=== PATIENT | female | born 1990 | race American Indian/Alaskan Native ===

== ENCOUNTER 2017-03-25 12:44 | Emergency (ER) | payer MEDICAID ==
[2017-03-25 15:21] LABS: Basophils % (Auto) 0.7 % (0.0-1.8); Eosinophils # (Auto) 0.3 K/mm3 (0.0-0.4); Hematocrit 35.7 % (30.3-42.9); Hemoglobin 11.7 gm/dl (10.1-14.3); Lymphocytes # (Auto) 1.7 K/mm3 (1.2-5.4); Lymphocytes % (Auto) 23.9 % (13.4-35.0); Mean Corpuscular HGB Conc 33 % (30-34); Mean Corpuscular Hemoglobin 28 pg (28-32); Mean Corpuscular Volume 85 fl (79-97); Monocytes # (Auto) 0.5 K/mm3 (0.0-0.8); Monocytes % (Auto) 7.8 % (0.0-7.3); Platelet Count 246 K/mm3 (140-440); Red Blood Count 4.23 M/mm3 (3.65-5.03); Red Cell Distribution Width 12.5 % (13.2-15.2)
[2017-03-25 15:46] LABS: Alanine Aminotransferase 20 units/L (7-56); Calcium 8.9 mg/dL (8.4-10.2); Hemolysis Index 4
[2017-03-25 16:25] LABS: BUN/Creatinine Ratio 13; Blood Urea Nitrogen 8 mg/dL (7-17)
--- NOTE | 2017-03-25 17:50 | Emergency Department Report ---
ED Abdominal Pain HPI - General Chief Complaint: Abdominal Pain Stated Complaint: LOWER ABDOMINAL PAIN Time Seen by Provider: 03/25/17 17:31 Source: patient Mode of arrival: Ambulatory Limitations: No Limitations - History of Present Illness MD Complaint: abdominal pain -: Sudden, days(s) (3 days) Location: RLQ Radiation: none Migration to: no migration Severity: severe Severity scale (0 -10): 7 Quality: cramping, stabbing Consistency: constant Improves With: rest Worsens With: movement Associated Symptoms: denies other symptoms Treatments Prior to Arrival: NSAIDs - Related Data LMP Date: 03/22/17 LMP (females 10-50): this week Previous Rx's Medication Instructions Recorded Last Taken Type Diphenhydramine HCl [Anti-Itch 30 gm TP TID #1 cream..g. 08/23/15 Unknown Rx CREAM] Ciprofloxacin HCl [Cipro] 500 mg PO Q12HR 10 Days #20 tablet 03/25/17 Unknown Rx Allergies Allergy/AdvReac Type Severity Reaction Status Date / Time fish derived Allergy Unknown Verified 08/22/15 21:44 fish Allergy Unknown Uncoded 08/22/15 21:44 peaches/kiwi Allergy Rash Uncoded 08/22/15 21:44 ED Review of Systems ROS: Stated complaint: LOWER ABDOMINAL PAIN Other details as noted in HPI Comment: All other systems reviewed and negative Constitutional: denies: chills, fever Eyes: denies: eye pain, eye discharge, vision change ENT: denies: ear pain, throat pain Respiratory: denies: cough, shortness of breath, wheezing Cardiovascular: denies: chest pain, palpitations Endocrine: no symptoms reported Gastrointestinal: abdominal pain. denies: nausea, diarrhea Genitourinary: denies: urgency, dysuria, discharge Musculoskeletal: denies: back pain, joint swelling, arthralgia Skin: denies: rash, lesions Neurological: denies: headache, weakness, paresthesias Psychiatric: denies: anxiety, depression Hematological/Lymphatic: denies: easy bleeding, easy bruising ED Past Medical Hx - Past Medical History Previous Medical History?: Yes Hx Asthma: Yes - Surgical History Past Surgical History?: No - Family History Family history: no significant, hypertension - Social History Smoking Status: Never Smoker Substance Use Type: None - Medications Home Medications: Home Medications Medication Instructions Recorded Confirmed Last Taken Type Diphenhydramine HCl [Anti-Itch 30 gm TP TID #1 cream..g. 08/23/15 Unknown Rx CREAM] Ciprofloxacin HCl [Cipro] 500 mg PO Q12HR 10 Days #20 tablet 03/25/17 Unknown Rx ED Physical Exam - General Limitations: No Limitations General appearance: alert, in no apparent distress - Head Head exam: Present: atraumatic, normocephalic - Eye Eye exam: Present: normal appearance - ENT ENT exam: Present: mucous membranes moist - Neck Neck exam: Present: normal inspection - Respiratory Respiratory exam: Present: normal lung sounds bilaterally. Absent: respiratory distress - Cardiovascular Cardiovascular Exam: Present: regular rate, normal rhythm. Absent: systolic murmur, diastolic murmur, rubs, gallop - GI/Abdominal GI/Abdominal exam: Present: soft, tenderness (right lower quadrant tenderness to palpation), normal bowel sounds - Extremities Exam Extremities exam: Present: normal inspection - Back Exam Back exam: Present: normal inspection - Neurological Exam Neurological exam: Present: alert, oriented X3 - Psychiatric Psychiatric exam: Present: normal affect, normal mood - Skin Skin exam: Present: warm, dry, intact, normal color. Absent: rash ED Course Vital Signs 03/25/17 03/25/17 14:42 19:19 Temperature 97.8 F 97.5 F L Pulse Rate 102 H 92 H Respiratory 18 18 Rate Blood Pressure 103/69 Blood Pressure 105/71 [Left] O2 Sat by Pulse 100 99 Oximetry ED Medical Decision Making - Lab Data Result diagrams: 03/25/17 14:52 03/25/17 14:52 - Radiology Data Radiology results: report reviewed No acute findings on CT scan of abdomen except for possible labial lesion secondary to Bartholin's cyst and simple renal cyst. - Medical Decision Making She is a 26-year-old female that presented with right lower quadrant pain. DT abdomen normal and negative. Urine positive for UTI. All labs and diagnostics reviewed with patient. Patient stable for discharge. Given discharge instructions. Patient instructed to take prescription medications - Differential Diagnosis uti/api. abd pain, gastroenteritis Critical care attestation.: If time is entered above; I have spent that time in minutes in the direct care of this critically ill patient, excluding procedure time. ED Disposition Clinical Impression: Abdominal pain, UTI (urinary tract infection) Disposition: TO HOME OR SELFCARE Is pt being admited?: No Does the pt Need Aspirin: No Condition: Stable Instructions: Abdominal Pain (ED), Urinary Tract Infection in Women (ED) Additional Instructions: Patient to follow up with primary care in 3-5 days. Patient to see GAS GENERATOR OPERATOR for management of Bartholin's cyst. Patient to take Tylenol or ibuprofen when necessary. Patient increase water. Patient to return to ER if condition worsens. Patient to take meds as instructed Prescriptions: Ciprofloxacin HCl [Cipro] 500 mg PO Q12HR 10 Days #20 tablet Referrals: PRIMARY CARE, [Primary Care Provider] - 3-5 Days Time of Disposition: 19:28
[2017-03-25 18:01] LABS: Bilirubin,Urine NEG (Negative); Blood,Urine MOD (Negative); Color,Urine Yellow (Yellow); Mucus,Urine 1+ /HPF; Nitrite,Urine NEG (Negative); Protein,Urine <15 mg/dL mg/dL (Negative); Urobilinogen,Urine < 2.0 mg/dL (<2.0)
--- NOTE | 2017-03-25 18:58 | Cat Scan Report ---
FINAL REPORT EXAM: CT ABDOMEN PELVIS WO CON HISTORY: abd pain TECHNIQUE: CT of the abdomen and pelvis was performed without intravenous contrast. Reconstructions were included in the coronal and sagittal planes. PRIORS: None. FINDINGS: Lower thorax: The lung bases are clear. The visualized portions of the heart are normal. Liver: The liver is normal in attenuation. No intrahepatic biliary duct dilation. No focal hepatic lesions. Gallbladder/ biliary system: Gallbladder is collapsed and not well evaluated. The common bile duct appears nondilated. Spleen: No splenic lesions are seen. Pancreas: No pancreatic lesions are seen. No pancreatic duct dilation. Kidneys: Small probable simple left inferior pole renal cyst is seen. No hydronephrosis. No renal or ureteral calcifications. Adrenal glands: No adrenal masses. Vasculature: The abdominal aorta is nondilated. Lymph nodes: No enlarged lymph nodes are seen in the abdomen or pelvis. Bowel, mesentery, peritoneum: No bowel obstruction. No free fluid or free air. The appendix is normal. No colonic diverticulosis. No bowel wall thickening. Urinary bladder: No filling defects are seen. Pelvis: A cystic focus is seen in the region of the right labia measuring 2.3 x 1.4 centimeters. The uterus and ovaries appear grossly unremarkable. Trace free fluid is seen in the pelvis which is likely physiologic. Abdominal wall: No abdominal wall hernia or other subcutaneous findings. Bones: No acute or chronic osseous finding. IMPRESSION: 1. Right labial lesion likely represents a Bartholin cyst. 2. Probable simple left renal cyst.
[2017-03-25 19:22] VITALS: BP 105/71
== END 2017-03-25 19:50 | disposition home or self-care (01) ==
LOC: ED 12:44
DX: N39.0 Urinary tract infection, site not specified (principal); Z91.013 Allergy to seafood; Z91.018 Allergy to other foods
CPT/HCPCS: 36415; 74176; 80053; 81001; 84703; 85025; 99284

== ENCOUNTER 2017-10-16 12:47 | Emergency (ER) | payer MEDICAID ==
[2017-10-16 12:55] VITALS: BP 116/72
[2017-10-16] MEDS ORDERED: XYLOCAINE 1% 20 mL INFILTRATI ONE (15:38)
--- NOTE | 2017-10-16 17:36 | Emergency Department Report ---
ED General Adult HPI - General Chief complaint: Skin/Abscess/Foreign Body Stated complaint: CYSPT/PAIN Time Seen by Provider: 10/16/17 14:56 Source: patient Mode of arrival: Ambulatory Limitations: No Limitations - History of Present Illness Initial comments: Patient presents to the emergency department with a complaint of a Bartholin's cyst. Patient states she's had this once before and had it drained in the emergency department. Patient denies any other symptoms. -: Gradual Location: genitals Radiation: non-radiation Severity scale (0 -10): 5 Improves with: none Worsens with: none Associated Symptoms: denies other symptoms Treatments Prior to Arrival: none - Related Data Previous Rx's Medication Instructions Recorded Last Taken Type Diphenhydramine HCl [Anti-Itch 30 gm TP TID #1 cream..g. 08/23/15 Unknown Rx CREAM] Ciprofloxacin HCl [Cipro] 500 mg PO Q12HR 10 Days #20 tablet 03/25/17 Unknown Rx Allergies Allergy/AdvReac Type Severity Reaction Status Date / Time fish derived Allergy Unknown Verified 08/22/15 21:44 fish Allergy Unknown Uncoded 08/22/15 21:44 peaches/kiwi Allergy Rash Uncoded 08/22/15 21:44 ED Review of Systems ROS: Stated complaint: CYSPT/PAIN Other details as noted in HPI Comment: All other systems reviewed and negative Constitutional: denies: chills, fever Eyes: denies: eye pain, eye discharge, vision change ENT: denies: ear pain, throat pain Respiratory: denies: cough, shortness of breath, wheezing Cardiovascular: denies: chest pain, palpitations Endocrine: no symptoms reported Gastrointestinal: denies: abdominal pain, nausea, diarrhea Genitourinary: denies: urgency, dysuria, discharge Musculoskeletal: denies: back pain, joint swelling, arthralgia Skin: denies: rash, lesions Neurological: denies: headache, weakness, paresthesias Psychiatric: denies: anxiety, depression Hematological/Lymphatic: denies: easy bleeding, easy bruising ED Past Medical Hx - Past Medical History Hx Asthma: Yes - Surgical History Past Surgical History?: No - Social History Smoking Status: Never Smoker Substance Use Type: None - Medications Home Medications: Home Medications Medication Instructions Recorded Confirmed Last Taken Type Diphenhydramine HCl [Anti-Itch 30 gm TP TID #1 cream..g. 08/23/15 Unknown Rx CREAM] Ciprofloxacin HCl [Cipro] 500 mg PO Q12HR 10 Days #20 tablet 03/25/17 Unknown Rx ED Physical Exam - General Limitations: No Limitations ED Course Vital Signs 10/16/17 12:53 Temperature 98.2 F Pulse Rate 96 H Respiratory 18 Rate Blood Pressure 116/72 O2 Sat by Pulse 99 Oximetry ED Medical Decision Making - Medical Decision Making Upon trying to find a female neurological surgeon to examine the patient end of the procedure the patient eloped Critical care attestation.: If time is entered above; I have spent that time in minutes in the direct care of this critically ill patient, excluding procedure time. ED Disposition Clinical Impression: Urogenital disorder Disposition: D Is pt being admited?: No Condition: Stable Referrals: PRIMARY CARE, [Primary Care Provider] - 3-5 Days
== END 2017-10-16 15:00 | disposition left against medical advice (07) ==
LOC: ED 12:47
DX: R52 Pain, unspecified (principal); Z53.21 Procedure and treatment not carried out due to patient leaving prior to being seen by health care provider

== ENCOUNTER 2020-06-08 08:30 | Emergency (ER) | payer MEDICAID ==
[2020-06-08 08:40] VITALS: BP 113/75
[2020-06-08 09:10] LABS: HCG Qualitative,Urine Negative (Negative)
[2020-06-08 09:17] LABS: Bilirubin,Urine NEG (Negative); Blood,Urine LG (Negative); Color,Urine Yellow (Yellow); Mucus,Urine 3+ /HPF; Urobilinogen,Urine < 2.0 mg/dL (<2.0); WBC,Urine > 182.0 /HPF (0.0-6.0)
--- NOTE | 2020-06-08 10:45 | Emergency Department Report ---
ED Female HPI - General Chief complaint: Urogenital-Female Stated complaint: PELVIC PAIN Time Seen by Provider: 06/08/20 09:47 Source: patient Mode of arrival: Ambulatory Limitations: No Limitations - History of Present Illness Initial comments: 29-year-old -[place] female presents to the emergency room full dull to sharp lower abdominal pain for the last 3 days. Patient denies any dysuria. She does admit to unprotected intercourse but denies any vaginal discharge. She is 6 para 3. Patient states nothing makes it worse is constant and better with sleep. Patient reports her last menstrual period was 05/20/2020. MD Complaint: pelvic pain Onset/Timin -: days(s) Location: suprapubic Severity scale (0 -10): 5 Quality: sharp, dull Consistency: constant Improves with: none Worsens with: none Are you Now?: No Last Menstrual Period: 05/20/20 EDC: 02/24/21 Associated Symptoms: hematuria. denies: vaginal discharge, vaginal bleeding, nausea/vomiting, dysuria, shortness of breath - Related Data Sexually active: Yes : 6 Para: 3 Previous Rx's Medication Instructions Recorded Last Taken Type Diphenhydramine HCl [Anti-Itch 30 gm TP TID #1 cream..g. 08/23/15 Unknown Rx CREAM] Ciprofloxacin HCl [Cipro] 500 mg PO Q12HR 10 Days #20 tablet 03/25/17 Unknown Rx Ibuprofen [Motrin 600 MG tab] 600 mg PO Q8H PRN #21 tablet 06/08/20 Unknown Rx Nitrofurantoin Brooke/M-Cryst 100 mg PO Q12HR 10 Days #20 capsule 06/08/20 Unknown Rx [Macrobid CAP] Allergies Allergy/AdvReac Type Severity Reaction Status Date / Time fish derived Allergy Unknown Verified 06/08/20 08:35 fish Allergy Unknown Uncoded 08/22/15 21:44 peaches/kiwi Allergy Rash Uncoded 08/22/15 21:44 ED Review of Systems ROS: Stated complaint: PELVIC PAIN Other details as noted in HPI Comment: All other systems reviewed and negative ED Past Medical Hx - Past Medical History Hx Asthma: Yes - Surgical History Past Surgical History?: No - Social History Smoking Status: Never Smoker Substance Use Type: None - Medications Home Medications: Home Medications Medication Instructions Recorded Confirmed Last Taken Type Diphenhydramine HCl [Anti-Itch 30 gm TP TID #1 cream..g. 08/23/15 Unknown Rx CREAM] Ciprofloxacin HCl [Cipro] 500 mg PO Q12HR 10 Days #20 tablet 03/25/17 Unknown Rx Ibuprofen [Motrin 600 MG tab] 600 mg PO Q8H PRN #21 tablet 06/08/20 Unknown Rx Nitrofurantoin Brooke/M-Cryst 100 mg PO Q12HR 10 Days #20 capsule 06/08/20 Unknown Rx [Macrobid CAP] ED Physical Exam - General Limitations: No Limitations General appearance: alert, in no apparent distress - Head Head exam: Present: atraumatic, normocephalic - Eye Eye exam: Present: normal appearance - ENT ENT exam: Present: normal external ear exam - Neck Neck exam: Present: normal inspection, full ROM - Respiratory Respiratory exam: Present: normal lung sounds bilaterally. Absent: respiratory distress - Cardiovascular Cardiovascular Exam: Present: regular rate - GI/Abdominal GI/Abdominal exam: Present: soft, normal bowel sounds. Absent: distended, tenderness - Extremities Exam Extremities exam: Present: normal inspection - Back Exam Back exam: Present: normal inspection - Neurological Exam Neurological exam: Present: alert, oriented X3, normal gait - Psychiatric Psychiatric exam: Present: normal affect, normal mood - Skin Skin exam: Present: warm, dry, intact, normal color. Absent: rash ED Course Vital Signs 06/08/20 08:39 Temperature 98.4 F Pulse Rate 95 H Respiratory 18 Rate Blood Pressure 113/75 O2 Sat by Pulse 98 Oximetry ED Medical Decision Making - Medical Decision Making 29-year-old -[place] female presents to the emergency room full dull to sharp lower abdominal pain for the last 3 days. Patient denies any dysuria. She does admit to unprotected intercourse but denies any vaginal discharge. She is 6 para 3. Patient states nothing makes it worse is constant and better with sleep. Patient reports her last menstrual period was 05/20/2020. Urinalysis shows positive for urinary tract infection. Will place patient on Macrobid 100 mg p.o. twice daily for 10 days. Instructed patient she can take ibuprofen or Tylenol for pain management. Instructed patient she needs to increase her water intake by 2 to 3 L daily. She needs to void after intercourse. Critical care attestation.: If time is entered above; I have spent that time in minutes in the direct care of this critically ill patient, excluding procedure time. ED Disposition Clinical Impression: UTI (urinary tract infection) Disposition: DC-01 TO HOME OR SELFCARE Is pt being admited?: No Does the pt Need Aspirin: No Condition: Stable Instructions: Urinary Tract Infection, Adult, [id number] Additional Instructions: Urinalysis is positive for urinary tract infection. I recommend to complete antibiotics as prescribed. Ibuprofen as needed for pain management. Increase your water intake by 2 to 3 L daily. Follow-up with your primary care provider in the next 3 to 5 days. Prescriptions: Nitrofurantoin Brooke/M-Cryst [Macrobid CAP] 100 mg PO Q12HR 10 Days #20 capsule Ibuprofen [Motrin 600 MG tab] 600 mg PO Q8H PRN #21 tablet PRN Reason: Pain Forms: Work/School Release Form(ED)
== END 2020-06-08 11:14 | disposition home or self-care (01) ==
LOC: ED 08:30
DX: N39.0 Urinary tract infection, site not specified (principal); J45.909 Unspecified asthma, uncomplicated; Z79.1 Long term (current) use of non-steroidal anti-inflammatories (NSAID); Z79.2 Long term (current) use of antibiotics; Z79.899 Other long term (current) drug therapy; Z88.8 Allergy status to other drugs, medicaments and biological substances; Z91.013 Allergy to seafood
CPT/HCPCS: 81001; 81025

== ENCOUNTER 2020-07-08 07:56 | Emergency (ER) | payer MEDICAID ==
--- NOTE | 2020-07-08 09:51 | Emergency Department Report ---
ED General Adult HPI - General Chief complaint: Vaginal Bleeding Stated complaint: PASSING CLOTS /NOT PREG Time Seen by Provider: 07/08/20 09:43 Source: patient Mode of arrival: Ambulatory Limitations: No Limitations - History of Present Illness Initial comments: 29-year-old A3 female patient presents to the emergency department with complaints of lower abdominal pain and vaginal bleeding starting this morning. Patient states that she has passed multiple blood clots today. She has soaked through approximately 4 pads/tampons in the last few hours. Last menstrual period was May 20. She is sexually active. She is not anticoagulated. Denies fever, chills, nausea, vomiting, diarrhea, rectal bleeding, vaginal discharge, syncope, chest pain, shortness of breath. Denies all other complaints at this time. - Related Data Previous Rx's Medication Instructions Recorded Last Taken Type Diphenhydramine HCl [Anti-Itch 30 gm TP TID #1 cream..g. 08/23/15 Unknown Rx CREAM] Ciprofloxacin HCl [Cipro] 500 mg PO Q12HR 10 Days #20 tablet 03/25/17 Unknown Rx Ibuprofen [Motrin 600 MG tab] 600 mg PO Q8H PRN #21 tablet 06/08/20 Unknown Rx Nitrofurantoin Elmore/M-Cryst 100 mg PO Q12HR 10 Days #20 capsule 06/08/20 Unknown Rx [Macrobid CAP] cephALEXin [Keflex] 500 mg PO Q8HR 5 Days cap 07/08/20 Unknown Rx Allergies Allergy/AdvReac Type Severity Reaction Status Date / Time fish derived Allergy Unknown Verified 06/08/20 08:35 fish Allergy Unknown Uncoded 08/22/15 21:44 peaches/kiwi Allergy Rash Uncoded 08/22/15 21:44 ED Review of Systems ROS: Stated complaint: PASSING CLOTS /NOT PREG Other details as noted in HPI Other: GENERAL: Negative for fever, chills, weight change, anorexia, fatigue. ENT: Negative for ear pain, difficulty hearing, sore throat, nasal congestion, epistaxis. CARDIOVASCULAR: Negative for chest pain, palpitations, lower extremity swelling. PULMONARY: Negative for cough, dyspnea, wheezing, orthopnea, cyanosis. GASTROINTESTINAL: Positive for abdominal pain. GENITOURINARY: Positive for vaginal bleeding. MUSCULOSKELETAL: Negative for joint pain, joint swelling, myalgias, back pain, neck pain. NEUROLOGICAL: Negative for headache, seizure, syncope, paresthesias, weakness. INTEGUMENTARY: Negative for erythema, rash, diaphoresis, laceration, ecchymosis. HEMATOLOGICAL: Negative for hemoptysis, hematemesis, hematochezia, hematuria. PSYCHIATRIC: Negative for hallucinations, suicidal ideation, homicidal ideation, anxiety, depression. ED Past Medical Hx - Past Medical History Previous Medical History?: Yes Hx Asthma: Yes - Social History Smoking Status: Never Smoker Substance Use Type: None - Medications Home Medications: Home Medications Medication Instructions Recorded Confirmed Last Taken Type Diphenhydramine HCl [Anti-Itch 30 gm TP TID #1 cream..g. 08/23/15 Unknown Rx CREAM] Ciprofloxacin HCl [Cipro] 500 mg PO Q12HR 10 Days #20 tablet 03/25/17 Unknown Rx Ibuprofen [Motrin 600 MG tab] 600 mg PO Q8H PRN #21 tablet 06/08/20 Unknown Rx Nitrofurantoin Elmore/M-Cryst 100 mg PO Q12HR 10 Days #20 capsule 06/08/20 Unknown Rx [Macrobid CAP] cephALEXin [Keflex] 500 mg PO Q8HR 5 Days cap 07/08/20 Unknown Rx ED Physical Exam - General Limitations: No Limitations - Other Other exam information: General: Awake and alert. No acute distress. Head: Atraumatic, normocephalic. Eyes: EOMI. Pupils are equal and round. Normal sclera and conjunctiva. ENT: Oral mucosa is moist. Normal pharyngeal exam. Neck: Supple. No lymphadenopathy. Pulmonary: No respiratory distress. Clear to auscultation bilaterally. Cardiac: Regular rate and rhythm. Pulses are palpable and equal bilaterally. No lower extremity cyanosis or edema. Skin: Warm and dry. No rashes. Abdomen: Soft, non-protuberant. Suprapubic tenderness without guarding, rigidity, or rebound. Bowel sounds are normal. No organomegaly or masses noted. Pelvic: Female heading repairer (Mariah) present. Normal external inspection. Cervical os is closed. There is no cervical motion tenderness. There is minimal blood in the vaginal vault. No discharge. No adnexal tenderness or masses. No uterine tenderness. Back: Normal alignment. No CVA tenderness. Extremities: Symmetrical. Full range of motion intact. Neurological: Alert and oriented, appropriately interactive, no focal deficits. Psych: Cooperative. Appropriate mood and affect. Speech is evenly metered. Thoughts are logically construed. ED Course Vital Signs 07/08/20 07/08/20 07:58 11:58 Temperature 98.5 F Pulse Rate 70 65 Respiratory 18 16 Rate Blood Pressure 114/69 110/78 [Right] O2 Sat by Pulse 100 100 Oximetry ED Medical Decision Making - Lab Data Result diagrams: 07/08/20 09:59 07/08/20 09:59 - Medical Decision Making Differential diagnosis including but not limited to: related complication, urinary tract infection, pyelonephritis, nephrolithiasis, ovarian cyst/torsion, pelvic inflammatory disease, tubo-ovarian abscess, coagulopathy, anemia, uterine fibroids, endometriosis Patient presents emergency department with complaints of suprapubic pain and vaginal bleeding. Vital signs are stable. Abdominal exam without signs of peritonitis. Hemoglobin is stable. test is negative. No concern for STD exposure. Upon further interrogation, patient states that she has been experiencing some discomfort with urination. She was recently treated for UTI with Macrobid a few weeks ago. No clinical indication for further diagnostic work-up on an emergent basis at this time. Patient will be discharged home with prescription for Keflex and instructed to follow-up with gynecology for further evaluation on an outpatient basis. Patient expressed understanding and is agreeable to plan of care. Strict return precautions provided. Repeat exam is unremarkable and benign. History, exam, diagnostic testing, and current condition do not suggest worrisome pathology to warrant further testing, continued ED treatment, admission, or surgical evaluation at this point. Given the low probability of a significant medical illness, it would be more likely to result in harm than benefit to perform further testing at this stage. Discussed findings, presumptive diagnosis, need for follow-up and specific signs/symptoms that should prompt immediate return to the emergency department. Instructions were explained in detail to the patient in addition to giving written discharge information. Patient expressed understanding and was given the opportunity to ask questions, all of which were satisfactorily answered prior to discharge home. Critical care attestation.: If time is entered above; I have spent that time in minutes in the direct care of this critically ill patient, excluding procedure time. ED Disposition Clinical Impression: Dysfunctional uterine bleeding Urinary tract infection Qualifiers: Urinary tract infection type: site unspecified Hematuria presence: with hematuria Qualified Code(s): N39.0 - Urinary tract infection, site not specified Disposition: DC- TO HOME OR SELFCARE Is pt being admited?: No Does the pt Need Aspirin: No Condition: Stable Instructions: Dysfunctional Uterine Bleeding Additional Instructions: Take Keflex with food as directed. Increase your dietary intake of probiotic rich foods while taking this medication. Rest. Drink plenty fluids. Follow-up with your heel gouger as scheduled. Return to the emergency department immediately for new or worsening symptoms. Specifically, return to the emergency department immediately for abdominal pain, increased bleeding, chest pain, shortness of breath, dizziness, loss of consciousness, or any other concerns. Prescriptions: cephALEXin [Keflex] 500 mg PO Q8HR 5 Days cap Referrals: LENCHO LUGO JR, MD [Staff Physician] - 3-5 Days Time of Disposition: 11:51
[2020-07-08 10:28] LABS: Basophils % (Auto) 0.6 % (0.0-1.8); Eosinophils # (Auto) 0.1 K/mm3 (0.0-0.4); Eosinophils % (Auto) 1.1 % (0.0-4.3); Hematocrit 37.7 % (30.3-42.9); Hemoglobin 12.3 gm/dl (10.1-14.3); Lymphocytes # (Auto) 2.2 K/mm3 (1.2-5.4); Lymphocytes % (Auto) 38.1 % (13.4-35.0); Mean Corpuscular HGB Conc 33 % (30-34); Mean Corpuscular Volume 86 fl (79-97); Monocytes # (Auto) 0.3 K/mm3 (0.0-0.8); Platelet Count 279 K/mm3 (140-440); Red Cell Distribution Width 13.3 % (13.2-15.2)
[2020-07-08 10:45] LABS: INR 0.89 (0.87-1.13)
[2020-07-08 10:46] LABS: Partial Thromboplastin Time 29.2 Sec. (24.2-36.6)
[2020-07-08 10:53] LABS: Alanine Aminotransferase 24 units/L (7-56); Albumin 3.9 g/dL (3.9-5); Blood Urea Nitrogen 6 mg/dL (7-17); Calcium 8.5 mg/dL (8.4-10.2); Hemolysis Index 48
[2020-07-08 11:02] LABS: BUN/Creatinine Ratio 9
[2020-07-08 11:38] LABS: Bilirubin,Urine NEG (Negative); Blood,Urine LG (Negative); Color,Urine Yellow (Yellow); Mucus,Urine 3+ /HPF; Urobilinogen,Urine < 2.0 mg/dL (<2.0)
[2020-07-08 11:39] LABS: RBC,Urine > 182.0 /HPF (0.0-6.0)
[2020-07-08 12:03] VITALS: BP 110/78
== END 2020-07-08 12:03 | disposition home or self-care (01) ==
LOC: ED 07:56
DX: N39.0 Urinary tract infection, site not specified (principal); N93.8 Other specified abnormal uterine and vaginal bleeding; J45.909 Unspecified asthma, uncomplicated; Z79.1 Long term (current) use of non-steroidal anti-inflammatories (NSAID); Z79.2 Long term (current) use of antibiotics; Z79.899 Other long term (current) drug therapy; Z91.013 Allergy to seafood; Z91.018 Allergy to other foods
CPT/HCPCS: 36415; 80053; 81001; 84702; 85025; 85610; 85730; 86900; 86901; 87086